=== PATIENT | male | born 1945 | race Caucasian/White ===

== ENCOUNTER 2018-06-28 11:09 | Outpatient (CLI) | payer MEDICARE, MEDICAID, SELFPAY ==
[2018-06-28 11:25] VITALS: BP 132/70; PULSE 49; RESP 20; TEMP 37; O2SAT 98
--- NOTE | 2018-06-28 12:30 | DI.RAD_ITS ---
SYMPTOMS/DIAGNOSIS: LUMBAR SPONDYLOSIS PAIN CLINIC LUMBAR SPINE: Fluoroscopy Time: 26.9 sec 7.68 mGy. Images obtained from the Pain Clinic demonstrate needles positioned over the lateral portion of the 4th and 5th lumbar vertebrae in connection with a lumbar medial branch block carried out by Dr. Gallegos. Please see the procedure report for further information.
--- NOTE | 2018-06-28 12:40 | PDOC.PAIN ---
Pain Clinic Procedure Note Current Active Problems Problem Status Onset Lumbosacral spondylosis without myelopathy Acute Lumbar/Sacral Medial Branch Blocks RADHA LEAL has been referred to the [facility] for lumbar/sacral medial branch blocks. COMMENTS: Low back pain with lumbar spondylosis Patient was interviewed and the medical record reviewed. There were no medical, pharmacologic, radiographic or other structural contraindications to attempting fluoroscopically guided local anesthetic lumbar/sacral medial branch blocks. Risks and expected side effects as well as potential benefit of the procedure were reviewed and voiced concerns addressed. The printed consent form was signed and witnessed. Standard time-out procedure was performed. Patient was placed in the prone position on the fluoroscopy table and automated blood pressure cuff and pulse oximeter applied. The skin entry points for approaching the anatomic target points of the segmental medial branches of {bilateral L3, 4, 5} were identified with anfluoroscopy and marked. Following thorough Chlorhexadine preparation of the skin and draping and 1% lidocaine infiltration of the skin entry points and subcutaneous tissues, a 22 gauge spinal needle was placed under fluoroscopic guidance down on to the target point for each respective segmental medial branch.Position was confirmed in A/P, oblique and lateral views with 0.25ml of omnipaque 240. At each point .5ml 0.5% Bupivacaine was injected. Vital signs were stable throughout the procedure and were as recorded in the docflowsheet by the nursing staff. Follow up plans and appointments were discussed and was instructed to keep careful note of how the usual pain was modified by these injections. Specifically was asked to keep a pain diary for the next 24 hours using a numeric pain scale of 0-10 and report these results at the follow-up visit. Post procedure instruction was given as documented in the nursing documentation and having met discharge criteria. Patient was discharged from the [facility]. Based on the medial branches blocked today, if the patient has adequate relief and we are able to proceed to radiofrequency ablation, the treatment should result in the denervation of the {bilateral L4-5,L5-S1 FACET JOINTS}. We would expect to denervate a total of {4} facets during the radiofrequency ablation. COMMENTS: Pain went from 09/25-07/26. If he gets relief will proceed with second block if not we will have her follow-up with Heather and then consider lumbar MRI and possibly other treatment. CC:
[2018-06-28 12:46] VITALS: BP 155/79; PULSE 53; RESP 22; O2SAT 99
[2018-06-28] MEDS: Omnipaque 240 MG/ML 50 ML BTL IJ (12:47)
[2018-06-28] MEDS: Bupivacaine 0.5% Pres-Free 30 ML VIAL IJ (12:47)
== END 2018-06-28 11:29 ==
PROVIDERS: Visit Provider Anesthesiology Pain Medicine
DX: M47.816 Spondylosis without myelopathy or radiculopathy, lumbar region (principal); M54.5 Low back pain
CPT/HCPCS: 64493 ×2; 64494 ×2; 64495 ×2; 72100; Q9967

== ENCOUNTER 2018-07-19 12:09 | Outpatient (CLI) | payer MEDICARE, MEDICAID, SELFPAY ==
--- NOTE | 2018-07-19 06:00 | DI.RAD_ITS ---
SYMPTOMS/DIAGNOSIS: LUMBAR SPONDYLOSIS PAIN CLINIC LUMBAR SPINE: Fluoroscopy Time: 24.3 sec Images submitted from the Pain Clinic demonstrate needle localization over the right and left facet joints in the lower lumbar spine in connection with a medial branch block. Please see Dr. Gallegos's procedure report for further information.
[2018-07-19 12:51] VITALS: BP 120/69; PULSE 45; RESP 20; TEMP 37; O2SAT 97
[2018-07-19] MEDS: Lidocaine 2% Pres-Free 5 ML VIAL IJ (13:23)
[2018-07-19] MEDS: Omnipaque 240 MG/ML 50 ML BTL IJ (13:24)
--- NOTE | 2018-07-19 13:35 | PDOC.PAIN ---
Pain Clinic Procedure Note Current Active Problems Problem Status Onset Lumbosacral spondylosis without myelopathy Chronic Lumbar/Sacral Medial Branch Blocks RADHA LEAL has been referred to the [facility] for lumbar/sacral medial branch blocks. COMMENTS: Patient had one set of medial branch blocks with bupivacaine with good relief. Patient was interviewed and the medical record reviewed. There were no medical, pharmacologic, radiographic or other structural contraindications to attempting fluoroscopically guided local anesthetic lumbar/sacral medial branch blocks. Risks and expected side effects as well as potential benefit of the procedure were reviewed and voiced concerns addressed. The printed consent form was signed and witnessed. Standard time-out procedure was performed. Patient was placed in the prone position on the fluoroscopy table and automated blood pressure cuff and pulse oximeter applied. The skin entry points for approaching the anatomic target points of the segmental medial branches of { bilateral L3, 4, 5} were identified with anfluoroscopy and marked. Following thorough Chlorhexadine preparation of the skin and draping and 1% lidocaine infiltration of the skin entry points and subcutaneous tissues, a 22 gauge spinal needle was placed under fluoroscopic guidance down on to the target point for each respective segmental medial branch.Position was confirmed in A/P, oblique and lateral views with 0.25ml of omnipaque 240. At each point .5ml 2% lidocaine was injected. Vital signs were stable throughout the procedure and were as recorded in the docflowsheet by the nursing staff. Follow up plans and appointments were discussed and was instructed to keep careful note of how the usual pain was modified by these injections. Specifically was asked to keep a pain diary for the next 24 hours using a numeric pain scale of 0-10 and report these results at the follow-up visit. Post procedure instruction was given as documented in the nursing documentation and having met discharge criteria. Patient was discharged from the [facility]. Based on the medial branches blocked today, if the patient has adequate relief and we are able to proceed to radiofrequency ablation, the treatment should result in the denervation of the {bilateral L4-5, L5-S1 FACET JOINTS}. We would expect to denervate a total of {4} facets during the radiofrequency ablation. COMMENTS: Pain went from 7/10-0/10. He will follow-up for radiofrequency ablation if he meets criteria. CC:
[2018-07-19 13:36] VITALS: BP 140/72; PULSE 49; RESP 15; O2SAT 99
== END 2018-07-19 12:29 ==
PROVIDERS: Visit Provider Anesthesiology Pain Medicine
DX: M47.817 Spondylosis without myelopathy or radiculopathy, lumbosacral region (principal)
CPT/HCPCS: 64493 ×2; 64494 ×2; 64495 ×2; 72100; Q9967

== ENCOUNTER 2018-08-02 07:38 | Outpatient (CLI) | payer MEDICARE, MEDICAID, SELFPAY ==
--- NOTE | 2018-08-02 06:00 | DI.RAD_ITS ---
SYMPTOM/DIAGNOSIS: LUMBAR SPONDYLOSIS, LUMBAR RADIOFREQUENCY ABLATION C-ARM: Fluoroscopy Time: 13.5 seconds Images submitted from the pain clinic demonstrate needle positioning over the lower lumbar spine in conjunction with a radiofrequency ablation carried out by Dr. Gallegos. Please see the procedure report for further information.
[2018-08-02 07:51] VITALS: BP 124/73; PULSE 50; RESP 18; TEMP 37.1; O2SAT 97
[2018-08-02 09:15] VITALS: BP 152/75; PULSE 54; RESP 20; O2SAT 99
--- NOTE | 2018-08-02 09:19 | PDOC.PAIN ---
Pain Clinic Procedure Note Current Active Problems Problem Status Onset Lumbosacral spondylosis without myelopathy Chronic COOLED LUMBAR/SACRAL MEDIAL BRANCH RADIOFREQUENCY RADHA LEAL has been referred to the [facility] for radiofrequency treatment of chronic axial back pain. RADHA has had long standing back pain thought to be facet joint generated and which has been refractory to other therapies. Local anesthetic medial branch blocks or intra-articular facet joint injections resulted in RADHA reporting reduction of the usual axial component of pain for at least the duration of the local anesthetic effect. COMMENTS: Patient had good relief from lumbar medial branch blocks x2 Patient was interviewed and the medical record reviewed. There were no medical, pharmacologic, radiographic or other structural contraindications to attempting fluoroscopically guided radiofrequency treatment. Risks and expected side effects as well as potential benefit of the procedure were reviewed and voiced concerns addressed. The printed consent form was signed and witnessed. Standard time-out procedure was performed. Patient was placed in the prone position on the fluoroscopy table and automated blood pressure cuff and pulse oximeter applied. The skin entry points for approaching the anatomic target points of the segmental medial branches of {bilateral:L3, 4, 5} were identified with fluoroscopy and marked. Following thorough Chlorhexadine preparation of the skin and draping and 1% lidocaine infiltration of the skin entry points and subcutaneous tissues, a single 17 guage 10 cm 4mm active tip radiofrequency cannula was placed under fluoroscopic guidance along or across the anatomic course of each respective segmental medial branch. Each placement was stimulated at 50Hz and les then 0.5V for medial branch sensory localization and the at 2Hz and up to 3 times the sensory voltage without any evidence of distal myotomal stimulation. 1cc of 1% ;idocaine was injected at each site. At each placement a continuous mode radiofrequency treatment was done at 60 degrees for 150 seconds. This radiofrequency treatment should result in the denervation of the { bilateral L4-5,L5-S1-FACET JOINTS}.~ A total of {4} facets were expected to be denervated from today's treatment. Vital signs were stable throughout the procedure and were as recorded in the docflowsheet by the nursing staff. If given, dosages of intravenous drugs for anxiolysis and analgesia were documented in the Medication Administration Record (MAR). Follow up plans and appointments were discussed. Post procedure instruction was given as documented in the nursing documentation and having met discharge criteria, RADHA was discharged from the [facility]. COMMENTS: Patient will follow-up as needed. CC: Lelo Turner
--- NOTE | 2018-08-02 09:25 | PDOC.PAIN_ITS ---
Pain Clinic Procedure Note Current Active Problems Problem Status Onset Lumbosacral spondylosis without myelopathy Chronic COOLED LUMBAR/SACRAL MEDIAL BRANCH RADIOFREQUENCY RADHA LEAL has been referred to the [facility] for radiofrequency treatment of chronic axial back pain. RADHA has had long standing back pain thought to be facet joint generated and which has been refractory to other therapies. Local anesthetic medial branch blocks or intra-articular facet joint injections resulted in RADHA reporting reduction of the usual axial component of pain for at least the duration of the local anesthetic effect. COMMENTS: Patient had good relief from lumbar medial branch blocks x2 Patient was interviewed and the medical record reviewed. There were no medical, pharmacologic, radiographic or other structural contraindications to attempting fluoroscopically guided radiofrequency treatment. Risks and expected side effects as well as potential benefit of the procedure were reviewed and voiced concerns addressed. The printed consent form was signed and witnessed. Standard time-out procedure was performed. Patient was placed in the prone position on the fluoroscopy table and automated blood pressure cuff and pulse oximeter applied. The skin entry points for approaching the anatomic target points of the segmental medial branches of {bilateral:L3, 4, 5} were identified with fluoroscopy and marked. Following thorough Chlorhexadine p reparation of the skin and draping and 1% lidocaine infiltration of the skin entry points and subcutaneous tissues, a single 17 guage 10 cm 4mm active tip radiofrequency cannula was placed under fluoroscopic guidance along or across the anatomic course of each respective segmental medial branch. Each placement was stimulated at 50Hz and les then 0.5V for medial branch sensory localization and the at 2Hz and up to 3 times the sensory voltage without any evidence of distal myotomal stimulation. 1cc of 1% ;idocaine was injected at each site. At each placement a continuous mode radiofrequency treatment was done at 60 degrees for 150 seconds. This radiofrequency treatment should result in the denervation of the { mendoza ateral L4-5,L5-S1-FACET JOINTS}.~ A total of {4} facets were expected to be denervated from today's treatment. Vital signs were stable throughout the procedure and were as recorded in the docflowsheet by the nursing staff. If given, dosages of intravenous drugs for anxiolysis and analgesia were documented in the Medication Administration Record (MAR). Follow up plans and appointments were discussed. Post procedure instruction was given as documented in the nursing documentation and having met discharge criteria, RADHA was discharged from the [facility]. COMMENTS: Patient will follow-up as needed. CC: Lelo Turner
== END 2018-08-02 07:58 ==
PROVIDERS: PCP Internal Medicine; Visit Provider Anesthesiology Pain Medicine
DX: M47.817 Spondylosis without myelopathy or radiculopathy, lumbosacral region (principal); G89.29 Other chronic pain
CPT/HCPCS: 64636 ×2; 64635 ×2; 72100